=== PATIENT | female | born 1990 | race Caucasian/White ===

== ENCOUNTER 2022-11-08 20:48 | Inpatient (IN) | payer OTHER ==
[2022-11-08 22:39] VITALS: BMI 19.6
[2022-11-09] MEDS ORDERED: ONDANSETRON *ODT* 4 MG TABLET SL PRN (01:49)
[2022-11-09] MEDS ORDERED: IBUPROFEN 400 MG TABLET (FP) PO PRN (01:49)
[2022-11-09] MEDS ORDERED: BENZOCAINE/MENTHOL (CHLORASEPTIC ) LOZENGE MM PRN (01:49)
[2022-11-09] MEDS ORDERED: NALOXONE HCL 0.4 MG/ML VIAL IM PRN (01:49)
[2022-11-09] MEDS ORDERED: MAG HYDROX/AL HYDROX/SIMETH 30 ML UNIT-DOSE CUP PO PRN (01:49)
[2022-11-09] MEDS ORDERED: BENZONATATE 200 MG CAPSULE PO PRN (01:49)
[2022-11-09] MEDS ORDERED: POLYETHYLENE GLYCOL (HEALTHYLAX) 3350 17 GM PACKET PO PRN (01:49)
[2022-11-09] MEDS ORDERED: NICOTINE POLACRILEX 2 MG GUM BUC PRN (01:49)
[2022-11-09] MEDS ORDERED: NALOXONE HCL (KLOXXADO) 8 MG SPRAY NS PRN (01:49)
[2022-11-09] MEDS ORDERED: MAGNESIUM HYDROX 2400MG/30ML ORAL SUSPENSION 30 ML CUP PO PRN (01:49)
[2022-11-09] MEDS ORDERED: guaiFENesin 600 MG TABLET.ER (FP) PO PRN (01:49)
[2022-11-09] MEDS ORDERED: DICYCLOMINE HCL 10 MG CAPSULE PO PRN (01:49)
[2022-11-09] MEDS ORDERED: ACETAMINOPHEN 325 MG TABLET (FP) PO PRN (01:49)
[2022-11-09] MEDS ORDERED: LOPERAMIDE HCL 2 MG CAPSULE PO PRN (01:49)
[2022-11-09] MEDS ORDERED: BISMUTH SUBSALICYLATE 524 MG/30 ML PO PRN (01:49)
[2022-11-09] MEDS ORDERED: methaDONE HCL 10 MG TABLET (FOR DETOX USE ONLY) PO ONE (02:02)
[2022-11-09] MEDS ORDERED: cloNIDine HCL 0.1 MG TABLET PO PRN (02:02)
[2022-11-09] MEDS ORDERED: methaDONE HCL 10 MG TABLET PO ONE (06:45)
[2022-11-09] MEDS: NICOTINE 14 MG/24 HOURS TOPICAL PATCH TD SCH (09:40)
[2022-11-09] MEDS: PRENATAL VITAMINS W/ FOLIC ACID TABLET (FP) PO SCH (09:40)
[2022-11-09] MEDS: THIAMINE HCL 100 MG TABLET (FP) PO SCH (22:37)
[2022-11-09] MEDS: MELATONIN 5 MG TABLETS PO SCH (22:37)
[2022-11-10] MEDS: PRENATAL VITAMINS W/ FOLIC ACID TABLET (FP) PO SCH (09:47)
[2022-11-10] MEDS: NICOTINE 14 MG/24 HOURS TOPICAL PATCH TD SCH (09:47)
[2022-11-10 12:26] LABS: POTASSIUM 4.1 mmol/L (3.5-5.1)
[2022-11-10 12:27] LABS: HEMOGLOBIN 13.1 GM/dL (10.7-15.3); MCH 29.9 pg (25.7-33.7); MCHC 32.9 g/dl (32.0-36.0); MEAN CELL VOLUME 91.1 fl (80-96); MEAN PLT VOLUME 9.7 fl (7.5-11.1); PLATELET COUNT 340 10^3/uL (134-434); RBC 4.39 M/mm3 (3.60-5.2); RDW 13.9 % (11.6-15.6); WHITE BLOOD COUNT 4.3 K/mm3 (4.0-10.0)
[2022-11-10 12:42] LABS: CALCIUM 9.9 mg/dL (8.5-10.1)
[2022-11-10 12:43] LABS: ALBUMIN 3.5 g/dl (3.4-5.0); BLOOD UREA NITROGEN 10.8 mg/dL (7-18)
[2022-11-10 12:46] LABS: CREATININE 0.8 mg/dL (0.55-1.3)
[2022-11-10 12:48] LABS: BILIRUBIN,TOTAL 0.3 mg/dL (0.2-1); TOT PROT 8.1 g/dl (6.4-8.2)
[2022-11-10] MEDS: THIAMINE HCL 100 MG TABLET (FP) PO SCH (22:55)
[2022-11-10] MEDS: MELATONIN 5 MG TABLETS PO SCH (22:55)
[2022-11-11] MEDS: hydrOXYzine PAMOATE 25 MG CAPSULE (FP) PO PRN (04:41)
[2022-11-11] MEDS: METHOCARBAMOL 500 MG TABLET PO PRN (04:43)
[2022-11-11] MEDS ORDERED: methaDONE HCL 10 MG TABLET (FOR DETOX USE ONLY) PO ONE (10:00)
[2022-11-11] MEDS: NICOTINE 14 MG/24 HOURS TOPICAL PATCH TD SCH (10:48)
[2022-11-11] MEDS: PRENATAL VITAMINS W/ FOLIC ACID TABLET (FP) PO SCH (10:48)
[2022-11-11] MEDS: THIAMINE HCL 100 MG TABLET (FP) PO SCH (23:36)
[2022-11-11] MEDS: MELATONIN 5 MG TABLETS PO SCH (23:36)
[2022-11-12] MEDS: METHOCARBAMOL 500 MG TABLET PO PRN ×2 (02:00→10:51)
[2022-11-12] MEDS: hydrOXYzine PAMOATE 25 MG CAPSULE (FP) PO PRN ×2 (02:00→10:51)
[2022-11-12] MEDS: PRENATAL VITAMINS W/ FOLIC ACID TABLET (FP) PO SCH (10:51)
[2022-11-12] MEDS: NICOTINE 14 MG/24 HOURS TOPICAL PATCH TD SCH (10:52)
[2022-11-12] MEDS: MELATONIN 5 MG TABLETS PO SCH (22:46)
[2022-11-12] MEDS: THIAMINE HCL 100 MG TABLET (FP) PO SCH (22:46)
[2022-11-13] MEDS ORDERED: methaDONE HCL 10 MG TABLET (FOR DETOX USE ONLY) PO ONE (10:00)
[2022-11-13] MEDS: hydrOXYzine PAMOATE 25 MG CAPSULE (FP) PO PRN (10:11)
[2022-11-13] MEDS: PRENATAL VITAMINS W/ FOLIC ACID TABLET (FP) PO SCH (10:11)
[2022-11-13] MEDS: NICOTINE 14 MG/24 HOURS TOPICAL PATCH TD SCH (10:11)
[2022-11-13] MEDS: THIAMINE HCL 100 MG TABLET (FP) PO SCH (22:26)
[2022-11-13] MEDS: MELATONIN 5 MG TABLETS PO SCH (22:26)
[2022-11-13] MEDS: METHOCARBAMOL 500 MG TABLET PO PRN (22:26)
[2022-11-13] MEDS: MELATONIN 5 MG TABLETS PO PRN (23:07)
[2022-11-14] MEDS: NICOTINE 14 MG/24 HOURS TOPICAL PATCH TD SCH (09:36)
[2022-11-14] MEDS: PRENATAL VITAMINS W/ FOLIC ACID TABLET (FP) PO SCH (09:36)
[2022-11-14] MEDS: MELATONIN 5 MG TABLETS PO PRN (22:58)
[2022-11-14] MEDS: hydrOXYzine PAMOATE 25 MG CAPSULE (FP) PO PRN (22:59)
[2022-11-14] MEDS: METHOCARBAMOL 500 MG TABLET PO PRN (22:59)
[2022-11-14] MEDS: THIAMINE HCL 100 MG TABLET (FP) PO SCH (23:00)
[2022-11-15] MEDS: PRENATAL VITAMINS W/ FOLIC ACID TABLET (FP) PO SCH (10:43)
[2022-11-15] MEDS: NICOTINE 14 MG/24 HOURS TOPICAL PATCH TD SCH ×2 (10:43→12:17)
[2022-11-15] MEDS: THIAMINE HCL 100 MG TABLET (FP) PO SCH (22:32)
[2022-11-15] MEDS: hydrOXYzine PAMOATE 25 MG CAPSULE (FP) PO PRN (22:32)
[2022-11-15] MEDS: MELATONIN 5 MG TABLETS PO PRN (22:32)
[2022-11-16] MEDS: PRENATAL VITAMINS W/ FOLIC ACID TABLET (FP) PO SCH (09:49)
[2022-11-16] MEDS: NICOTINE 14 MG/24 HOURS TOPICAL PATCH TD SCH (09:49)
[2022-11-16] MEDS: hydrOXYzine PAMOATE 25 MG CAPSULE (FP) PO PRN (23:01)
[2022-11-16] MEDS: THIAMINE HCL 100 MG TABLET (FP) PO SCH (23:01)
[2022-11-16] MEDS: MELATONIN 5 MG TABLETS PO PRN (23:01)
[2022-11-17] MEDS: NICOTINE 14 MG/24 HOURS TOPICAL PATCH TD SCH (09:45)
[2022-11-17] MEDS: PRENATAL VITAMINS W/ FOLIC ACID TABLET (FP) PO SCH (09:45)
[2022-11-17] MEDS: MELATONIN 5 MG TABLETS PO PRN (22:54)
[2022-11-17] MEDS: THIAMINE HCL 100 MG TABLET (FP) PO SCH (22:54)
[2022-11-18] MEDS: NICOTINE 14 MG/24 HOURS TOPICAL PATCH TD SCH (09:09)
[2022-11-18] MEDS: PRENATAL VITAMINS W/ FOLIC ACID TABLET (FP) PO SCH (09:09)
[2022-11-18] MEDS ORDERED: MELATONIN 5 MG TABLETS PO ONE (19:03)
[2022-11-18] MEDS ORDERED: MELATONIN 5 MG TABLETS PO PRN (20:56)
[2022-11-18] MEDS: IBUPROFEN 600 MG TABLET (FP) PO PRN (21:31)
[2022-11-18] MEDS: THIAMINE HCL 100 MG TABLET (FP) PO SCH (21:45)
[2022-11-19] MEDS: NICOTINE 14 MG/24 HOURS TOPICAL PATCH TD SCH (10:01)
[2022-11-19] MEDS: PRENATAL VITAMINS W/ FOLIC ACID TABLET (FP) PO SCH (10:01)
[2022-11-19] MEDS: IBUPROFEN 600 MG TABLET (FP) PO PRN (20:00)
[2022-11-19] MEDS: THIAMINE HCL 100 MG TABLET (FP) PO SCH (22:43)
[2022-11-20] MEDS: traZODone HCL 100 MG TABLET (FP) PO PRN ×2 (01:25→23:11)
[2022-11-20] MEDS: hydrOXYzine PAMOATE 25 MG CAPSULE (FP) PO PRN (01:33)
[2022-11-20] MEDS: NICOTINE 14 MG/24 HOURS TOPICAL PATCH TD SCH (09:47)
[2022-11-20] MEDS: PRENATAL VITAMINS W/ FOLIC ACID TABLET (FP) PO SCH (09:47)
[2022-11-20 22:31] VITALS: RESP 18
[2022-11-20] MEDS: THIAMINE HCL 100 MG TABLET (FP) PO SCH (23:10)
[2022-11-21] MEDS: hydrOXYzine PAMOATE 25 MG CAPSULE (FP) PO PRN (02:43)
[2022-11-21] MEDS: PRENATAL VITAMINS W/ FOLIC ACID TABLET (FP) PO SCH (09:48)
[2022-11-21] MEDS: NICOTINE 14 MG/24 HOURS TOPICAL PATCH TD SCH (09:48)
[2022-11-21] MEDS: THIAMINE HCL 100 MG TABLET (FP) PO SCH (22:26)
[2022-11-21] MEDS: traZODone HCL 100 MG TABLET (FP) PO PRN (22:27)
[2022-11-22] MEDS: NICOTINE 14 MG/24 HOURS TOPICAL PATCH TD SCH (09:13)
[2022-11-22 09:19] VITALS: BP 111/73; PULSE 108; TEMP 97.8
[2022-11-22] MEDS: PRENATAL VITAMINS W/ FOLIC ACID TABLET (FP) PO SCH (09:21)
== END 2022-11-22 11:57 | disposition home or self-care (01) | DRG 773 ==
LOC: YASAS 20:48 → Y3N 11-09 04:57
PROVIDERS: ADMIT Allergy & Immunology; ATTEND Allergy & Immunology
PROC: HZ2ZZZZ Detoxification Services for Substance Abuse Treatment (ICD-10-PCS; principal; 2022-11-09)
DX: F11.23 Opioid dependence with withdrawal (principal); F14.20 Cocaine dependence, uncomplicated; F17.210 Nicotine dependence, cigarettes, uncomplicated; F19.282 Other psychoactive substance dependence with psychoactive substance-induced sleep disorder; U07.1 COVID-19; Z86.19 Personal history of other infectious and parasitic diseases; Z88.8 Allergy status to other drugs, medicaments and biological substances
CPT/HCPCS: 36415; 80053; 85027; 86780; 87635; 87811; 93005; 93010